=== PATIENT | female | born 1990 | race Caucasian/White ===

== ENCOUNTER 2017-09-11 09:22 | Emergency (ER) | payer OTHER ==
[~2017-09-11] VITALS: Ht 172.7 cm; Wt 56.7 kg
[~2017-09-11 09:22] MED LIST: ALPRAZOLAM1 M2 PO; FIORICET 50-301 EACH PO; SERTRALINE HCL100 MG PO; SUBOXONE 8 MG-1 EACH SL; TOPIRAMATE50 M1 PO
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
[2017-09-11 11:19] LABS: ABSOLUTE BASOPHIL COUNT 0.1 /CUMM (0.0-0.2); ABSOLUTE EOSINOPHIL COUNT 0.8 /CUMM (0.0-0.7); ABSOLUTE LYMPH COUNT 2.4 /CUMM (1.2-3.4); EOSINOPHIL % 6.9 % (0-5); GRANULOCYTE % 61.8 % (42.2-75.2); MEAN CORPUSCULAR HGB 29.6 PG (27.0-31.0); MEAN CORPUSCULAR HGB CONC 33.2 G/DL (33.0-37.0); MEAN CORPUSCULAR VOLUME 89.1 FL (81.0-99.0); MEAN PLATELET VOLUME 9.1 FL (7.4-10.4); PLATELET COUNT 286 /CUMM (130-400); RBC DISTRIBUTION WIDTH 14.3 % (11.5-14.5); RED BLOOD CELL CT 4.26 /CUMM (4.20-5.40); WHITE BLOOD CELL COUNT 11.4 /CUMM (4.8-10.8)
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
[2017-09-11 13:54] VITALS: BP 123/67
== END 2017-09-11 13:55 ==
LOC: ERH 09:22
PROVIDERS: Emergency Medicine
DX: F32.9 Major depressive disorder, single episode, unspecified (principal); Z72.89 Other problems related to lifestyle; F11.10 Opioid abuse, uncomplicated
CPT/HCPCS: 80307; 81001; 93005; 93010; G0463; G0480